=== PATIENT | female | born 1990 | race Caucasian/White ===

== ENCOUNTER 2016-05-22 08:38 | Emergency (ER) | payer OTHER ==
[2016-05-22 08:52] VITALS: RESP 20; O2SAT 97
--- NOTE | 2016-05-22 08:52 | UCPHY ---
H & P Time Seen by Provider: 05/22/16 08:51 Patient Type: New HPI/ROS: 25-year-old female with no significant past medical history presents complaining of headache of approximately 2 days duration, the worse headache of her life. Patient states she has started getting headaches approximately 6 months ago and has noticed no particular pattern however they have been getting more frequent they often start at the base of her neck and wrapped around her head they are often preceded by an aura of floaters. She denies fevers or chills at times she has nausea and photophobia she denies vomiting. Review of systems General no fever no chills no weakness HEENT no eye pain no eye discharge. No eye redness, no sore throat Respiratory no cough, no shortness of breath Cardiac no chest pain, no peripheral edema GI no abdominal pain, no diarrhea, no constipation, no nausea, no vomiting no flank pain, no hematuria, no dysuria Musculoskeletal no myalgias, no joint pain Heme no easy bruising, no easy bleeding Endo no polyuria, no polydipsia Skin no rashes, no pruritus Neuro no syncope, no dizziness, positive headaches Psych is no suicidal ideation, no homicidal ideation Past Medical/Surgical History: None Social History: Denies alcohol or drug use Smoking Status: Never smoked Physical Exam: HEENT atraumatic normocephalic, extraocular muscles intact, anicteric Oropharynx negative for erythema negative exudate, tolerating her own secretions Neck supple no meningismus Lungs clear to auscultation bilaterally Heart regular rate and rhythm without murmur rub or gallop Abdomen nondistended normoactive bowel sounds soft nontender Back no CVA tenderness, no step-offs, no spinal tenderness Extremities no cyanosis clubbing or edema Neuro alert and oriented, no focal deficits Constitutional: Initial Vital Signs Temperature (C) 36.5 C 05/22/16 08:50 Heart Rate 111 H 05/22/16 08:50 Respiratory Rate 20 05/22/16 08:50 Blood Pressure 166/71 H 05/22/16 08:50 O2 Sat (%) 97 05/22/16 08:50 O2 Delivery Mode Room Air Allergies/Adverse Reactions: No Known Allergies Allergy (Unverified 05/22/16 08:49) Home Medications: Medication Instructions Recorded SUMAtriptan [Imitrex 25 MG (*)] 25 mg PO Q2H #8 tab 05/22/16 Season[place]/Stevena 05/22/16 Medical Decision Making ED Course/Re-evaluation: Patient seen and evaluated for worst headache of her life. She believes she may have migraines. Patient currently refusing to have blood work and/or IV medication also refusing to have CT scan of brain I have explained to the patient in detail my concerns about her headaches of 6 months duration recently worsening and the need for a more thorough evaluation. After talking to her insurance provider she was told that she would need to go to an emergency department rather than in urgent care in order for this work up to be covered. I have offered her a very short term sumatriptan to cover the possibility of migraine but have recommended that she be seen either by primary care and/or the closest emergency room if she continues to have headaches. - Data Points Medications Given: Discontinued Medications Diphenhydramine HCl (Benadryl Injection) 25 mg IVP EDNOW ONE Stop: 05/22/16 09:07 Last Admin: 05/22/16 09:47 Dose: Not Given Sodium Chloride (Ns) 1,000 mls @ 0 mls/hr IV ONCE ONE PRN Reason: Wide Open Stop: 05/22/16 09:07 Last Admin: 05/22/16 09:47 Dose: Not Given Metoclopramide HCl (Reglan Injection) 10 mg IVP EDNOW ONE Stop: 05/22/16 09:07 Last Admin: 05/22/16 09:47 Dose: Not Given Sumatriptan Succinate (Imitrex) 50 mg PO EDNOW ONE Stop: 05/22/16 09:39 Last Admin: 05/22/16 09:47 Dose: Not Given Departure - Departure Disposition: Home, Routine, Self-Care Clinical Impression: Headache Condition: Good Instructions: Tension Headache (ED), Migraine Headache (ED), Acute Headache (ED ) Additional Instructions: I cannot confirm that you have a migraine headache today. Your headaches of 6 months duration would require further workup including imaging such as CT scan, blood work. You may be able to get that evaluation at a regular emergency department and/or through a primary care physician. In the meantime you can try sumatriptan. I would also recommend to increase your fluid intake, sleep regularly and decrease screen time if possible. If her symptoms are worsening, please go to the closest emergency department for further evaluation Referrals: NONE *PRIMARY CARE P,. [Primary Care Provider] - As per Instructions [facility] [Provider Group] - As per Instructions Prescriptions: SUMAtriptan [Imitrex 25 MG (*)] 25 mg PO Q2H #8 tab - PQRS PQRS Measurement: na
[2016-05-22] MEDS ORDERED: METOCLOPRAMIDE 10 MG/2 ML VIAL IVP ONE (09:06)
[2016-05-22] MEDS ORDERED: NS 1,000 ML IV ONE (09:06)
[2016-05-22] MEDS ORDERED: SUMAtriptan 50 MG TAB PO ONE (09:38)
[2016-05-22 09:49] VITALS: BP 144/71; PULSE 89; TEMP 98.6
== END 2016-05-22 09:52 | disposition home or self-care (01) ==
LOC: CED 08:38
DX: R51 Headache (principal)
CPT/HCPCS: G0463-PO